=== PATIENT | female | born 1950 | race Caucasian/White ===

== ENCOUNTER → 2020-03-25 14:13 | Outpatient (CLI) | payer MEDICARE, SELFPAY ==
[2020-03-26 14:10] LABS: COVID19 -Nasal RAPID Negative (Negative)
== END ==
PROVIDERS: PCP Internal Medicine; Visit Provider Physician Assistant
DX: Z11.59 Encounter for screening for other viral diseases (principal)
CPT/HCPCS: 87635

== ENCOUNTER 2020-03-29 14:51 | Observation (INO) | payer MEDICARE, OTHER, SELFPAY ==
[2020-03-21 12:57] VITALS: BMI 38.3
[2020-03-28] VITALS (13 sets, daily range): BP systolic 86–159; BP diastolic 42–92; PULSE 71–91; RESP 15–22; TEMP 35.7–37; O2SAT 94–100; BMI 38.3
--- NOTE | 2020-03-28 06:00 | DI.RAD.S_ITS ---
PROCEDURE: XR KNEE LT 1TO2V INDICATIONS: postop TECHNIQUE: 2 view(s) of the knee acquired. COMPARISON: None. FINDINGS: Bones: Patient is status post knee joint arthroplasty. Hardware components are in expected positions. Visualized bony structures are intact. Soft tissues: Overlying postoperative changes are noted. IMPRESSION: Status post left total knee arthroplasty. Dictated by: Cammie Bran M.D. on 03/28/2020 at 16:55 Approved by: Cmamie Bran M.D. on 03/28/2020 at 16:56
[2020-03-28] MEDS: CELECOXIB 200 MG CAPSULE PO (10:41)
[2020-03-28] MEDS: ACETAMINOPHEN 325 MG TABLET 975 MG PO (10:41)
[2020-03-28] MEDS: PREGABALIN 75 MG CAPSULE PO (10:41)
--- NOTE | 2020-03-28 12:11 | SUR.PREOP ---
Patient resting quietly in bed with son at bedside. Again, apologized for delay. Patient v/u. Call light in place.
[2020-03-28] MEDS: MIDAZOLAM 2 MG/2 ML VIAL IV (15:14)
[2020-03-28] MEDS: fentaNYL 100 MCG/2 ML INJ 50 MCG IV (15:14)
[2020-03-28] MEDS: CEFAZOLIN 2 GM/100 ML FROZ.PIGGY IV ×2 (15:18→22:52)
--- NOTE | 2020-03-28 15:23 | SUR.PREOP ---
Block start time [1514] . Monitoring initiated and maintained throughout procedure. Oxygen and medications given per anesthesiologist instructions. Patient remained stable throughout procedure, no adverse reactions noted. Block end time [1517].
[2020-03-28] MEDS: TRANEXAMIC ACID 1,000 MG VIAL 1000 MG INJ (15:50)
--- NOTE | 2020-03-28 16:01 | SUR.OPER ---
Supine on padded OR bed. Pillow under head, arms secured on padded armboards <90 degree abduction. Safety belt across torso. Non-operative leg secured with tape over blanket over lower leg. Operative leg secured in DeMayo/Armando positioner. Foam padded brace at thigh of operative leg.
[2020-03-28] MEDS: LIDOCAINE 1% W/EPI 20 ML INJ (16:10)
[2020-03-28] MEDS: BUPIVACAINE 0.25% W/ EPI (PF) 40 ML, BUPIVACAINE LIPOSOME 266 MG, SODIUM CHLORIDE 0.9% ... INJ (16:10)
[2020-03-28] MEDS: BUPIVACAINE 0.25% W/ EPI (PF) 20 ML, TRANEXAMIC ACID 1,000 MG, SODIUM CHLORIDE 0.9% 10 ML INJ (16:12)
--- NOTE | 2020-03-28 17:04 | PM.OP.1 ---
Operative Date/Time/Diagnoses Date of procedure: 03/28/20 Time of procedure: 17:04 Pre-op diagnosis: Left knee osteoarthritis Post-op diagnosis: same Procedure & Clinicians Procedure: Left total knee arthroplasty Same procedure as scheduled: Yes Indications: The patient presents today for total knee arthroplasty after failure of conservative treatment. The nature of the procedure including the risks and benefits, alternatives, postoperative course and expected outcome were discussed and all questions answered. Consent was obtained. Operative site confirmed and marked. Surgeon: Juan Pablo Hendrickson Radio Installer Automobile: [employer] Anesthesia Type: Spinal, Peripheral nerve block and Local Operative Notes Closure Type: primary Specimen(s): none sent Prosthetic devices, grafts, tissues, transplants, or devices: [employer] [facility] BCS: 5 femoral component, 3 tibial component, 9 mm BCS polyethylene tray and 32 x 9 mm round patella Applied: implant(s) Estimated Blood Loss (mL): 10 Tourniquet time (min): 58 Procedure in detail: The patient was taken to the operative suite and placed under anesthesia. The patient was given prophylactic antibiotics prior to surgery. The patient was also given tranexamic acid, 1 g, just prior to surgery for postoperative hemostasis. The lateral knee was prepped and the joint injected with 20 mL of 1% Lidocaine with epinephrine. The knee was then prepped and draped in usual sterile fashion. The leg was exsanguinated with an Esmarch dressing and the tourniquet raised to 325 torr. A 15 cm anterior incision was made. Next a medial trivector arthrotomy was made. The extensor mechanism was marked to ensure accurate repair. Initial exposing dissection was carried out medially and laterally. The knee was then flexed and the intramedullary femoral guide cecy placed. The distal femoral cut was made in 6? of valgus at the +0 position. The femoral size was measured and the appropriate cutting block was then placed and the anterior, posterior and chamfer cuts made. The intramedullary tibial alignment cecy was then placed. The guide was set to remove approximately 10 mm from the less affected lateral side. The proximal tibial cut was then made with an oscillating saw. All meniscus and bony debris was then removed. Posterior femoral osteophytes removed with a curved osteotome. Flexion extension gaps were checked. No specific balancing was required other than routine exposure and removal of osteophytes. The soft tissues were then injected with a combination of 20 mL of half percent Marcaine with epinephrine and 20 mL of Exparel. The trial components were then placed. The knee was then extended and the patellar thickness was measured and a cut made removing approximately 9 mm of bone. The patella was then sized and drilled. Some excess lateral bone was excised and the patellofemoral ligament released. The knee went into full extension and flexion beyond 130?. There was good medial-lateral balance throughout motion. There was some increased laxity in flexion on the medial aspect of the joint only. This was considered acceptable and not able to really correct this point. Patellar tracking was excellent. The trial components were removed and the knee was cleansed with Pulsavac irrigation and dried. The final components were cemented with high viscosity vacuum mixed bone cement with antibiotics. The joint was filled with a dilute Betadine solution. The knee was held in extension and the patellar clamped until the cement was adequately cured. The knee was then irrigated. The extensor mechanism was closed with 5 interrupted #1 Vicryl sutures and a running Quill suture at approximately 90 degrees of flexion. The joint was then injected with a combination of 1 g of tranexamic acid and 20 mL of quarter percent Marcaine with epinephrine. The subcutaneous tissue was closed with 2 0 Vicryl. The skin was closed with miguel ángel and surgical adhesive. An Aquacel dressing and Derek wrap were then applied. The patient tolerated the procedure well and was returned to recovery room in good condition. Complications: none Post-operative Condition: stable Disposition: PACU Plan for aftercare: [facility] Protocol.
[2020-03-28] MEDS: LACTATED RINGERS 1,000 ML 42 ML IV ×2 (17:39)
[2020-03-28] MEDS: LACTATED RINGERS 1,000 ML 100 ML IV (18:51)
[2020-03-28] MEDS: ACETAMINOPHEN 325 MG TABLET 650 MG PO (20:03)
[2020-03-28] MEDS: IBUPROFEN 400 MG TABLET PO (20:03)
[2020-03-28] MEDS: OXYCODONE IR 5 MG TABLET PO (20:03)
[2020-03-28] MEDS: ASPIRIN EC 81 MG TABLET PO (20:04)
[2020-03-28] MEDS: DOCUSATE 100 MG CAPSULE PO (20:04)
[2020-03-28] MEDS: HYDROMORPHONE 2 MG TABLET PO (20:50)
[2020-03-28] MEDS: ALPRAZolam 0.5 MG TABLET 1 MG PO (22:55)
[2020-03-29] MEDS: IBUPROFEN 400 MG TABLET PO ×6 (00:37→20:35)
[2020-03-29] MEDS: HYDROMORPHONE 2 MG TABLET PO ×5 (04:18→20:35)
[2020-03-29] MEDS: hydrOXYzine pamoate 25 MG CAPSULE PO ×3 (04:18→18:41)
[2020-03-29] MEDS: LACTATED RINGERS 1,000 ML 100 ML IV (05:38)
[2020-03-29] MEDS: THYROID, PORK 30 MG TABLET PO (05:38)
[2020-03-29 05:42] LABS: Hematocrit 35.4 % (36-46); Hemoglobin 11.9 g/dL (12.0-16.0)
[2020-03-29 06:00] VITALS: BP 123/67; PULSE 68; RESP 16; TEMP 36.3; O2SAT 97
[2020-03-29] MEDS: CEFAZOLIN 2 GM/100 ML FROZ.PIGGY IV (06:46)
[2020-03-29 08:00] VITALS: BP 115/68; PULSE 69; RESP 16; TEMP 36.6; O2SAT 99
--- NOTE | 2020-03-29 08:46 | P.PN_ITS ---
Subjective Subjective Date Patient Seen: 03/29/20 Time Patient Seen: 08:46 Interval history: Patient is POD#1 s/p left TKA with Dr. Hendrickson. Some issues with pain control overnight, better control this AM with Dilaudid/Tylenol/Advil combo. Has not been OOB yet. Hutchins catheter in place due to her history of cystitis. Tolerating a diet. No complaints. Exam Vital Signs (past 8 hours): - 03/29/20 06:00 03/29/20 08:00 Temperature 97.4 F L 97.8 F Pulse Rate 68 69 Respiratory Rate 16 16 Blood Pressure 123/67 115/68 Pulse Oximetry 97 99 Oxygen Delivery Method Room Air Oxygen Flow Rate 0 Narrative Exam Narrative: 69 year old obese female resting in bed. Alert and oriented in no acute distress. PRERNA dressing in place is on and functional, CDI. Patient able to perform small leg raise. Calves are soft. Palpable pedal pulse. Objective Labs Result Diagrams: 03/29/20 05:23 Labs: Laboratory Results - last 24 hr 03/29/20 05:23 Hgb 11.9 L Hct 35.4 L Assessment & Plan Assessment & Plan narrative: Patient is POD#1 s/p L TKA. Patient has not mobilized OOB yet. Plan for her to work with PT today. Hutchins catheter in place, will d/c this today if she is able to mobilize to bedside commode with PT. Patient is obese which increased the difficulty of her operation as well as increasing the likelihood of postoperative complications such as poor wound healing and dehiscence. Anticipate slow progression postop with at least one more night inpatient due to her lack of mobility and similar experience after previous TKA. She has poor family support at home with son available as vice president of business development only for 1 night. Continue present pain control. Possible discharge to home in 1-2 days.
[2020-03-29] MEDS: DOCUSATE 100 MG CAPSULE PO ×2 (08:51→20:36)
[2020-03-29] MEDS: ACETAMINOPHEN 325 MG TABLET 650 MG PO ×3 (08:51→20:36)
[2020-03-29] MEDS: ASPIRIN EC 81 MG TABLET PO ×2 (08:52→20:36)
--- NOTE | 2020-03-29 09:25 | PT.IIE ---
Current Diagnoses Unilateral primary osteoarthritis, left knee (03/28/20) Surgery Performed Operation Date: 03/28/20 12:15 Actual Procedures p Total Knee Arthroplasty(Left) - Juan Pablo Hendrickson MD Surgical History (Last Updated 03/21/20 @ 13:21 by Gracie Tadeo, ANGEL) History of arthroplasty of right ankle (Acute 2019) History of arthroplasty of right knee (Acute 2008) History of hysterectomy (Acute) History of reconstruction of both breasts (Acute) History of removal of Port-a-Cath (Acute) Hx of bilateral mastectomy (Acute 2013) Hx of cholecystectomy (Acute) Hx of lithotripsy (Acute) Medical History (Last Updated 03/28/20 @ 10:52 by Sydney Whaley RN) Anxiety (Acute) Bilateral breast cancer (Acute 2013) DDD (degenerative disc disease), lumbar (Acute) Easy bruisability (Acute) Fibromyalgia (Acute) Hypothyroidism (Acute) Interstitial cystitis (Acute) Kidney stones (Acute) Morbid obesity (Acute) Osteoarthritis (Acute) RLS (restless legs syndrome) (Acute) Physical Therapy Inpatient Evaluation/Re-Eval M1 PT/OT-IP Prior Functional Status Start: 03/29/20 11:27 Freq: NEEDED Status: Active Protocol: Document 03/29/20 09:25 AB (Rec: 03/29/20 11:39 AB [id number]) Medical Review Prior Functional Status Medical History Reviewed Yes Communication able to make needs known Mobility and Gait pt stated that she is modified independent with all mobilities and ambulation without AD but uses SPC for long distance mobility Social History Household Members none Living Arrangements Mobile home Number of Floors (Floors) One Floor Number of Stairs To Enter/Railing? no steps; ramp to enter Home Environment High Toilet,Tub/Shower,Ramp Home Equipment Front Wheel Walker,Straight Cane,Hand Held Shower,Bed Rails,Grab Bars In Shower M2 PT-IP Current Condition Start: 03/29/20 11:27 Freq: NEEDED Status: Active Protocol: Document 03/29/20 09:25 AB (Rec: 03/29/20 11:39 AB [email or web address]) Physical Therapy Current Condition Current Condition Evaluation Date 03/29/20 Treatment Diagnosis s/p L TKA ; difficulty in walking Onset Date 03/28/20 Weight Bearing Status Weight Bearing Status Weight Bear as Tolerated Allowed Weight Bearing Amount (enter % WBAT LLE or #) (%) M3 PT-IP Subjective Start: 03/29/20 11:27 Freq: NEEDED Status: Active Protocol: Document 03/29/20 09:25 AB (Rec: 03/29/20 11:39 [email or web address]) Subjective Physical Therapy Visit Type Type Initial Evaluation Visit Start Time 09:25 Visit Stop Time 10:19 Total Visit Minutes 54 Number of FLOOR WORKER WELL SERVICE Visits 0 Physical Therapy Visit Comments Patient Comments pt is agreeable to do PT Therapy Pain Assessment Pain When Pain Assessed At Rest Pain Present Pain Present Pain Reported Location Left Knee Intensity 6 Scale Used increases to 8/10 with mobility Pain Management Techniques Apply Cold,Distraction, Modification of Treatment,Re- positioning,Timing of Activity with Medications M4 PT-IP Mobility and Gait Start: 03/29/20 11:27 Freq: NEEDED Status: Active Protocol: Document 03/29/20 09:25 AB (Rec: 03/29/20 11:39 [email or web address]) PT-Bed Mobility Assessment Supine to Sit Supine to Sit Standby Assistance Sit to Supine Sit to Supine Minimal Assistance PT-Transfer Assessment Sit to and From Stand Sit to and from Stand Maximum Assistance Equipment Transfer Assistive Device Gait Belt,Front Wheeled Walker Orthotic/Prosthetic Devices or Brace: No Comments Mobility Comments BP in supine: 135/70. completed supine to sit SBA. pt was able to sit on EOB SBA. completed sit to stand max A and cues. ambulated towards the chair but after ~ 3 ft, c/ o lightheadedness. instructed to sit on EOB and ambulated ~ 2 ft towards EOB max A and max cues for L quads activation. pt stated that she needs to lay back down due to lightheadedness. attempted to obtain BP in sitting but unable to get a reading. instructed pt to scoot up towards HOB and completed SBA. completed sit to supine min A for LLE elevation. positioned in bed. BP checked: 119/69. call light and table placed within reach. Gait Assessment Gait Gait Assistance Required: Maximum Assistance,1 Person Assist Distance (Feet) 5 Able to Maintain Weight Bearing Status Yes During Gait Assistive Devices Assistive Device Gait Belt,Front Wheeled Walker Orthotic/Prosthetic Devices or Brace: No Gait Deviations General Gait Pattern Antalgic,Decreased Stride Length,Decreased Feet Clearance,Step-to Gait Factors Limiting Gait Function Factors Limiting Gait Function Decreased Activity Tolerance, Decreased Strength,Limited Range of Motion,Pain,Poor Balance,Poor Safety Awareness PT-Balance Assessment Sitting Balance and Reactions Static Sitting Balance Ability Good Dynamic Sitting Balance Ability Good Standing Balance and Reactions Static Standing Balance Ability Fair Dynamic Standing Balance Ability Poor Device Used FWW M5 PT-IP Objective Assessments Start: 03/29/20 11:27 Freq: NEEDED Status: Active Protocol: Document 03/29/20 09:25 AB (Rec: 03/29/20 11:39 AB [id number]) Orientation Orientation/Cognition Level of Alertness Alert Orientation Name,Age,Birthday,Month,Date, Year,Day of Week,Place, Situation Language Function Ability No Deficits Noted Safety Awareness Understands Safety Issues Memory Description No Deficits Noted Gross Range of Motion Lower Extremity ROM Assessment Left Impaired Impairments L knee flexion: ~ 40 deg L knee extension: ~ 30 deg less to neutral Strength Lower Extremity Strength Assessment Left Impaired Hip 3+/5 Knee 3-/5 Ankle 4/5 Sensation Assessment Sensation Gross Sensation WNL Muscle Tone Muscle Tone WNL Yes M6 PT-IP Treatment Start: 03/29/20 11:27 Freq: NEEDED Status: Active Protocol: Document 03/29/20 09:25 AB (Rec: 03/29/20 11:39 AB [id number]) Physical Therapy Treatment Exercises Exercises Quad Sets,Heel Slides Education Education Provided Precautions,Weight Bearing Status,Post-Op Packet,Safety M7 PT-IP Assessment and Plan Start: 03/29/20 11:27 Freq: NEEDED Status: Active Protocol: Document 03/29/20 09:25 AB (Rec: 03/29/20 11:39 [email or web address]) PT Summary Assessment and Plan Potential Rehabilitation Potential Good Status of Condition at Evaluation Evolving Summary Impairments Pain,ROM,Strength,Balance, Coordination,Sensation,Tone, Cognition,Bed Mobility, Transfers,Gait,Activity Tolerance Assessment Summary pt requiring max A with mobility and unable to tolerate much activity due to c/o lightheadedness. pt lives alone and son will only be able to stay with pt 1 day. pt also stated that son will not be able to assist pt with toileting needs. pt at this time will require SNF rehab to improve strength and function independence. Goals Bed Mobility Goal Independent Transfer Goal Independent,Front Wheeled Walker Gait Goal Independent,Front Wheel Walker Gait Distance 150 Days to Meet Goals 5 Frequency of Treatment Frequency Of Treatment Twice a Day Treatment Plan Physical Therapy Treatment Plan Bed Mobility Training,Transfer Training,Gait Training, Therapeutic Exercise,Balance Retraining,Post Op Education, Discharge Planning,Hot or Cold Pack,Neuromuscular Re-ed, Coordination Retraining,Manual Therapy Recommendations To Nursing Amount of Assist Needed 1 Person Assist Discharge Recommendations PT Discharge Recommendations SNF Rehab Transportation Needs at Discharge Private Vehicle,Wheelchair/ Cabulance
[2020-03-29] MEDS: OXYCODONE IR 10 MG TABLET PO (10:29)
[2020-03-29 11:00] VITALS: BP 137/68; PULSE 66; RESP 16; TEMP 36.8; O2SAT 98
--- NOTE | 2020-03-29 12:11 | CM.DANOTE ---
Addendum entered by Anita Garza R.N. 03/29/20 14:34: Met with patient and son, Bertrand, who is at bedside. Had a discussion regarding discharge planning. Asked patient if she could pay privately at a correction facility, if needed, and stated, she can't. She understands that under observation, insurance does not cover correction. She would like home health, P.T, O.T, and bath aide. Stated that she would appreciate it, especially a bath aide. Ruben Castro worked with patient again. Patient indicated she did much better. Confirmed that patient will not qualify for inpatient, will be OBS. Patient is aware that she will be discharged tomorrow with home health. Gave Medicare Choice List to sonBertrand, and he will research agencies. Gave him care management's phone number as well. Original Note: DCP: Case received, EMR reviewed and met with patient. Son, Bertrand, was also at bedside. Introduced self and role. Was able to obtain information from patient and son regarding current living situation, discharge planning, as well as baseline activity status prior to having surgery. Patient is a 69 year old female who admitted yesterday morning to the care of the orthopedic team. PCP: Dr. Herring. Payer: confirmed: Medicare/[facility]. Patient came to the hospital for a surgical procedure. She had left total knee arthroplasty. Patient has had history of osteoarthritis. Met with patient and son in her room. Confirmed that patient is not , stated, has been for several years. Son, Bertrand, is local, but stated, he can only stay a couple of days to help out. Patient is independent at baseline. She currently has a francis secondary to cystitis. Patient resides alone in [place], and son in [place]. Melinda Wallis, PAC, stated that patient will stay another day. Will see if patient can become inpatient status, Juan Pablo in will review. Discussed home health with patient, who stated, she thinks that's a great idea. P.T. is recommending skilled rehab, but will depend upon status. Other option is if patient can pay privately. Did not yet bring up correction with patient as of yet. P: DCP to continue to follow. Will see if she can make inpatient status, otherwise, will discuss with patient if she is able to go to a correction facility and pay privately. Other option is home health. Anita Garza RN/Medical Technologist Chemistry
--- NOTE | 2020-03-29 13:09 | PT.IPTN ---
Current Diagnoses Unilateral primary osteoarthritis, left knee (03/28/20) Surgery Performed Operation Date: 03/28/20 12:15 Actual Procedures p Total Knee Arthroplasty(Left) - Juan Pablo Hendrickson MD Physical Therapy Treatment Note M2 PT-IP Current Condition Start: 03/29/20 11:27 Freq: NEEDED Status: Active Protocol: Document 03/29/20 09:25 AB (Rec: 03/29/20 11:39 AB [email or web address]) Physical Therapy Current Condition Current Condition Evaluation Date 03/29/20 Treatment Diagnosis s/p L TKA ; difficulty in walking Onset Date 03/28/20 Weight Bearing Status Weight Bearing Status Weight Bear as Tolerated Allowed Weight Bearing Amount (enter % WBAT LLE or #) (%) M3 PT-IP Subjective Start: 03/29/20 11:27 Freq: NEEDED Status: Active Protocol: Document 03/29/20 13:09 AB (Rec: 03/29/20 14:47 AB [email or web address]) Subjective Physical Therapy Visit Type Type Treatment Note Visit Start Time 13:09 Visit Stop Time 13:50 Total Visit Minutes 41 Number of BLOOD TESTER Visits 0 Physical Therapy Visit Comments Patient Comments pt is agreeable to do PT Therapy Pain Assessment Pain When Pain Assessed At Rest Pain Present Pain Present Pain Reported Location Left Knee Intensity 7 Scale Used Numeric (0 - 10) Pain Management Techniques Apply Cold,Distraction, Modification of Treatment,Re- positioning,Timing of Activity with Medications M4 PT-IP Mobility and Gait Start: 03/29/20 11:27 Freq: NEEDED Status: Active Protocol: Document 03/29/20 13:09 AB (Rec: 03/29/20 14:47 AB [email or web address]) PT-Transfer Assessment Sit to and From Stand Sit to and from Stand Minimal Assistance,1 Person Assistance,Use of Upper Extremities Equipment Transfer Assistive Device Gait Belt,Front Wheeled Walker Orthotic/Prosthetic Devices or Brace: No Transfers Transfer Destination Chair Transfer Technique ambulated using FWW Transfer Ability Level of Assist Minimal Assistance,1 Person Assistance,Use of Upper Extremities Comments Mobility Comments checked on pt and saw pt sitting on EOB. stated that she just wants to sit up. agreed to do PT. BP in sittin/89. completed sit to stand min A and cues and ambulated ~ 15 ft min A using FWW. pt without c/o lightheadedness. Pt sat on chair. BP checked again: 134/ 78. pt ambulated again using FWW 15 ft min A. completed sit to stand from chair x 3 reps CGA to min A with initial cues. reviewed and completed HEP sitting on chair. positioned pt on chair. call light and table placed within reach. Gait Assessment Gait Gait Assistance Required: Minimum Assistance Distance (Feet) 15 Able to Maintain Weight Bearing Status Yes During Gait Assistive Devices Assistive Device Gait Belt,Front Wheeled Walker Gait Deviations General Gait Pattern Antalgic,Decreased Stride Length,Decreased Feet Clearance,Step-to Gait Factors Limiting Gait Function Factors Limiting Gait Function Decreased Activity Tolerance, Decreased Strength,Limited Range of Motion,Pain,Poor Balance,Poor Safety Awareness Comments Gait Comments pls refer to mobility section for details M5 PT-IP Objective Assessments Start: 03/29/20 11:27 Freq: NEEDED Status: Active Protocol: Document 03/29/20 09:25 AB (Rec: 03/29/20 11:39 AB [email or web address]) Orientation Orientation/Cognition Level of Alertness Alert Orientation Name,Age,Birthday,Month,Date, Year,Day of Week,Place, Situation Language Function Ability No Deficits Noted Safety Awareness Understands Safety Issues Memory Description No Deficits Noted Gross Range of Motion Lower Extremity ROM Assessment Left Impaired Impairments L knee flexion: ~ 40 deg L knee extension: ~ 30 deg less to neutral Strength Lower Extremity Strength Assessment Left Impaired Hip 3+/5 Knee 3-/5 Ankle 4/5 Sensation Assessment Sensation Gross Sensation WNL Muscle Tone Muscle Tone WNL Yes M6 PT-IP Treatment Start: 03/29/20 11:27 Freq: NEEDED Status: Active Protocol: Document 03/29/20 13:09 AB (Rec: 03/29/20 14:[email or web address] Physical Therapy Treatment Exercises Exercises Ankle Pumps,Heel Slides,Seated Knee Flexion/Extension Education Education Provided Safety Other Treatments Other Treatment Performed completed LAQs M7 PT-IP Assessment and Plan Start: 03/29/20 11:27 Freq: NEEDED Status: Active Protocol: Document 03/29/20 13:09 AB (Rec: 03/29/20 14:47 [email or web address]) PT Summary Assessment and Plan Potential Rehabilitation Potential Good Summary Impairments Pain,ROM,Strength,Balance, Coordination,Bed Mobility, Transfers,Gait,Activity Tolerance Progress Towards Goals Slow Progress due to Pain Assessment Summary pt is progressing slowly and doing better with mobility this after but still requiring min A for ambulation. pt will likely progress during hospital stay. son stated that he will be able to stay ~ 2 nights with pt and can check pt during the day afterwards. recommending homehealth PT at this time. will continue to assess progress. Goals Bed Mobility Goal Independent Transfer Goal Independent,Front Wheeled Walker Gait Goal Independent,Front Wheel Walker Gait Distance 150 Days to Meet Goals 5 Frequency of Treatment Frequency Of Treatment Twice a Day Treatment Plan Physical Therapy Treatment Plan Bed Mobility Training,Transfer Training,Gait Training, Therapeutic Exercise,Balance Retraining,Post Op Education, Discharge Planning,Hot or Cold Pack,Neuromuscular Re-ed, Coordination Retraining,Manual Therapy Recommendations To Nursing Amount of Assist Needed 1 Person Assist Discharge Recommendations PT Discharge Recommendations Home with Assistance,Home Health Transportation Needs at Discharge Private Vehicle,Wheelchair/ Cabulance
[2020-03-29 16:00] VITALS: BP 139/75; PULSE 67; RESP 18; TEMP 36.9; O2SAT 96
[2020-03-29 20:00] VITALS: BP 123/63; PULSE 73; RESP 18; TEMP 36.9
[2020-03-30 00:43] VITALS: BP 122/67; PULSE 73; RESP 16; TEMP 37.4; O2SAT 98
[2020-03-30] MEDS: IBUPROFEN 400 MG TABLET PO ×4 (00:53→14:48)
[2020-03-30] MEDS: hydrOXYzine pamoate 25 MG CAPSULE PO (00:53)
[2020-03-30] MEDS: HYDROMORPHONE 2 MG TABLET PO ×3 (02:47→14:49)
--- NOTE | 2020-03-30 03:19 | PC.NURSE ---
Patient seen and assessed at 0108. Is alert and oriented. Breath sounds CTA with RA sat of 98%. HRR. Denies nausea. BT present and is passing flatus. Still with indwelling catheter; urine is clear, yellow. Is able to move herself in bed. Gait not assessed but reportedly is now getting up with walker and 1 assist. PRERNA dressing to left knee intact and functioning with small spot of sanguinous drainage over patella; is covered with giovanna wrap. Has chronic edema in bilateral LE with 1+ edema if left foot; states left foot has been more swollen for past 1 month. CMS is intact although could only lift leg couple inches off bed. Wearing bilateral calf SCD's. Denied pain during assessment but at 0247 did complain of 7/10 pain and was medicated with po Dilaudid. Did complain of itchiness which was relieved with administration of Vistaril. Fall risk score is moderate and bed alarm is activated.
[2020-03-30] MEDS: THYROID, PORK 30 MG TABLET PO (05:29)
[2020-03-30 06:00] VITALS: BP 122/66; PULSE 72; RESP 16; TEMP 36.7; O2SAT 98
[2020-03-30 08:40] VITALS: BP 125/61; PULSE 72; RESP 16; TEMP 36.3; O2SAT 99
[2020-03-30] MEDS: ASPIRIN EC 81 MG TABLET PO (08:44)
[2020-03-30] MEDS: DOCUSATE 100 MG CAPSULE PO (08:44)
[2020-03-30] MEDS: ACETAMINOPHEN 325 MG TABLET 650 MG PO ×2 (08:45→14:49)
[2020-03-30] MEDS: SODIUM CHLORIDE 0.9% FLUSH 10 ML IV (08:49)
--- NOTE | 2020-03-30 10:17 | PT.IPTN ---
Current Diagnoses Unilateral primary osteoarthritis, left knee (03/29/20) Surgery Performed Operation Date: 03/28/20 12:15 Actual Procedures p Total Knee Arthroplasty(Left) - Juan Pablo Hendrickson MD Physical Therapy Treatment Note M2 PT-IP Current Condition Start: 03/29/20 11:27 Freq: NEEDED Status: Active Protocol: Document 03/29/20 09:25 AB (Rec: 03/29/20 11:39 AB [id number]) Physical Therapy Current Condition Current Condition Evaluation Date 03/29/20 Treatment Diagnosis s/p L TKA ; difficulty in walking Onset Date 03/28/20 Weight Bearing Status Weight Bearing Status Weight Bear as Tolerated Allowed Weight Bearing Amount (enter % WBAT LLE or #) (%) M3 PT-IP Subjective Start: 03/29/20 11:27 Freq: NEEDED Status: Active Protocol: Document 03/30/20 09:49 KS (Rec: 03/30/20 11:35 KS [id number]) Subjective Physical Therapy Visit Type Type Treatment Note Visit Start Time 09:49 Visit Stop Time 10:17 Total Visit Minutes 28 Number of APPARATUS ENGINEERING TECHNOLOGIST Visits 1 Physical Therapy Visit Comments Patient Comments pt is agreeable to do PT Therapy Pain Assessment Pain When Pain Assessed During Mobility Pain Present Pain Present Pain Reported Location Left Knee Scale Used not quantified Description Aching,Tightness Pain Behaviors Guarding Pain Management Techniques Elevation,Re-positioning M4 PT-IP Mobility and Gait Start: 03/29/20 11:27 Freq: NEEDED Status: Active Protocol: Document 03/30/20 09:49 KS (Rec: 03/30/20 11:35 KS [id number]) PT-Bed Mobility Assessment Supine to Sit Supine to Sit Standby Assistance Sit to Supine Sit to Supine Standby Assistance Scooting Scooting to Edge of Bed Standby Assistance Scooting Up and Down in Bed Standby Assistance PT-Transfer Assessment Sit to and From Stand Sit to and from Stand Contact Guard Assistance,1 Person Assistance,Use of Upper Extremities Equipment Transfer Assistive Device Gait Belt,Front Wheeled Walker Orthotic/Prosthetic Devices or Brace: No Transfers Transfer Destination Bed,Chair Transfer Technique ambulated using FWW Transfer Ability Level of Assist Contact Guard Assistance,1 Person Assistance,Use of Upper Extremities Comments Mobility Comments Pt in bed upon arrival from therapy. SBA for sup<>sit w/ HOB slightly elevated and SBA for scooting to EOB. Pt sit<> stand CGA and cues for hand placement. Pt then ambulated ~ [address] w/ FWW and CGA w/ cues for quad activation and equal step length. Pt reported increased pain during ambulation upon return to room, but did not quantify. Pt vikas requested to get in chair, CGA and cues, but then stated she was more comfortable in bed. Pt sit<> stans and stand step pivot transfer to bed CGA. Instructed pt how to use gait belt for LLE assistance into bed when fatigued, which she completed succesfully SBA w/ cues. Pt able to position herself in bed SBA and left in bed w/ all needs in reach. Gait Assessment Gait Gait Assistance Required: Contact Guard Assist,1 Person Assist Distance (Feet) 100 Able to Maintain Weight Bearing Status Yes During Gait Assistive Devices Assistive Device Gait Belt,Front Wheeled Walker Gait Deviations General Gait Pattern Antalgic,Decreased Stride Length,Decreased Feet Clearance,Step-to Gait Factors Limiting Gait Function Factors Limiting Gait Function Decreased Activity Tolerance, Decreased Strength,Limited Range of Motion,Pain,Poor Balance,Poor Safety Awareness Comments Gait Comments Please refer to mobility section for details. PT-Balance Assessment Sitting Balance and Reactions Static Sitting Balance Ability Good Dynamic Sitting Balance Ability Good Standing Balance and Reactions Static Standing Balance Ability Fair Dynamic Standing Balance Ability Fair Device Used FWW M5 PT-IP Objective Assessments Start: 03/29/20 11:27 Freq: NEEDED Status: Active Protocol: Document 03/29/20 09:25 AB (Rec: 03/29/20 11:39 AB [id number]) Orientation Orientation/Cognition Level of Alertness Alert Orientation Name,Age,Birthday,Month,Date, Year,Day of Week,Place, Situation Language Function Ability No Deficits Noted Safety Awareness Understands Safety Issues Memory Description No Deficits Noted Gross Range of Motion Lower Extremity ROM Assessment Left Impaired Impairments L knee flexion: ~ 40 deg L knee extension: ~ 30 deg less to neutral Strength Lower Extremity Strength Assessment Left Impaired Hip 3+/5 Knee 3-/5 Ankle 4/5 Sensation Assessment Sensation Gross Sensation WNL Muscle Tone Muscle Tone WNL Yes M6 PT-IP Treatment Start: 03/29/20 11:27 Freq: NEEDED Status: Active Protocol: Document 03/30/20 09:49 KS (Rec: 03/30/20 11:35 KS [id number]) Physical Therapy Treatment Exercises Exercises Ankle Pumps,Heel Slides,Seated Knee Flexion/Extension Education Education Provided Post-Op Packet,Safety Other Treatments Other Treatment Performed Set up caregiver training w/ pts son @14:30 M7 PT-IP Assessment and Plan Start: 03/29/20 11:27 Freq: NEEDED Status: Active Protocol: Document 03/30/20 09:49 KS (Rec: 03/30/20 11:35 KS [id number]) PT Summary Assessment and Plan Potential Rehabilitation Potential Good Summary Impairments Pain,ROM,Strength,Balance, Coordination,Bed Mobility, Transfers,Gait,Activity Tolerance Assessment Summary Pt showed improvements w/ bed mobility and tolerance for activtity today. SBA for sup<> sit and scooting. CGA for sit< >stand and CGA for ambulation w/ FWW. Pt tolerated ~100 ft ambulation w/ FWW w/ cues for quad activation and equal step length. Pt will need caregiver training prior to d/ c. Goals Bed Mobility Goal Independent Transfer Goal Independent,Front Wheeled Walker Gait Goal Independent,Front Wheel Walker Gait Distance 150 Days to Meet Goals 5 Frequency of Treatment Frequency Of Treatment Twice a Day Treatment Plan Physical Therapy Treatment Plan Bed Mobility Training,Transfer Training,Gait Training, Therapeutic Exercise,Balance Retraining,Post Op Education, Discharge Planning,Hot or Cold Pack,Neuromuscular Re-ed, Coordination Retraining,Manual Therapy Recommendations To Nursing Amount of Assist Needed 1 Person Assist Discharge Recommendations PT Discharge Recommendations Home with Assistance,Home Health Transportation Needs at Discharge Private Vehicle,Wheelchair/ Cabulance
[2020-03-30 11:40] VITALS: BP 146/80; PULSE 79; RESP 16; TEMP 36.8; O2SAT 94
--- NOTE | 2020-03-30 12:55 | PM.DS.1 ---
History of Present Illness History of Present Illness Date Patient Seen: 03/30/20 Time Patient Seen: 07:27 Chief complaint: Left Total Knee Arthroplasty *OPB* Narrative: Patient's pain is mild. Denies fever chills. No nausea vomiting. Patient has been able do move about the room with assistance and a walker. Discharge Providers Provider Date of admission: 03/29/20 14:51 Discharge Date: 03/30/20 Primary care physician: Asuncion Herring MD Consults: 03/28/20 18:30 Consult to Discharge Planning Routine Comment: Consult to Physical Therapy Evaluate & Treat Comment: Physician Instructions: postop TKA protocol Consult to Respiratory Therapy Evaluate & Treat Comment: Physician Instructions: Evaluate and treat Discharge provider: Salomón Sofia PA-C Summary Hospital Course Discharge Diagnosis: Left knee osteoarthritis Obesity with BMI of 38.4 Hospital Course: Procedure: Left total knee arthroplasty Same procedure as scheduled: Yes Indications: The patient presents today for total knee arthroplasty after failure of conservative treatment. The nature of the procedure including the risks and benefits, alternatives, postoperative course and expected outcome were discussed and all questions answered. Consent was obtained. Operative site confirmed and marked. Surgeon: Juan Pablo Hendrickson Tail End Rider: Salomón Sofia Anesthesia Type: Spinal, Peripheral nerve block and Local Operative Notes Closure Type: primary Specimen(s): none sent Prosthetic devices, grafts, tissues, transplants, or devices: Sauceda and Nephew Anish BCS: 5 femoral component, 3 tibial component, 9 mm BCS polyethylene tray and 32 x 9 mm round patella Applied: implant(s) Estimated Blood Loss (mL): 10 Tourniquet time (min): 58 Status at Discharge Cognitive/behavioral status at discharge: at baseline, oriented Functional status at discharge: uses cane/walker Time Spent with Patient Time spent: Less than 30 minutes Exam Vital Signs (past 8 hours): - 03/30/20 06:00 03/30/20 08:40 Temperature 98.0 F 97.4 F L Pulse Rate 72 72 Respiratory Rate 16 16 Blood Pressure 122/66 125/61 Pulse Oximetry 98 99 Oxygen Delivery Method Room Air Oxygen Flow Rate 0 Narrative Exam Narrative: 69-year-old female resting comfortably in bed in no apparent distress. Dressing is clean, dry and intact. Motor function intact distal left lower extremity. Sensation grossly intact to light touch distal left lower extremity. Both legs are warm and dry. Objective Labs Result Diagrams: 03/29/20 05:23 Discharge Assessment & Plan Assessment and Plan Assessment: Patient progressing as expected status post left total knee arthroplasty. Patient lives alone in her son will be available at night time. She stable to be discharged home with home health services. Discharge Plan Discharge Plan Patient Disposition: Home Health Service Discharge orders & Medications Prescriptions: New acetaminophen 325 mg Tablet 650 mg PO TID Qty: 60 RF: 1 aspirin 81 mg Tablet,Delayed Release (Dr/Ec) 81 mg PO BID Qty: 60 RF: 0 oxycodone 5 mg Tablet 5 mg PO Q3HR PRN (Reason: Pain, Moderate (4-6)) Qty: 60 RF: 0 Continued alprazolam 1 mg Tablet 1 mg PO BEDTIME PRN (Reason: Sleep) RF: 0 zolpidem 5 mg Tablet 5 mg PO BEDTIME PRN (Reason: Sleep) RF: 0 celecoxib [Celebrex] 100 mg Capsule 100 mg PO BID RF: 0 thyroid (pork) [GUEST SERVICES COORDINATOR Thyroid] 30 mg Tablet 30 mg PO DAILY RF: 0 Discontinued oxycodone 5 mg Tablet 5 mg PO BID PRN (Reason: Pain) RF: 0 Follow up/Referrals: Juan Pablo Hendrickson MD [Physician] - (14 days) Asuncion Herring MD [Primary Care Provider] - Diet/Activity/Treatments Activity: WBAT Cold/Heat Therapy: ice as needed Skin/Wound/Dressing Care Dressing: PRERNA dressing. Follow information on printed information given to you. If drain alarms, becomes saturated, or you have any problems with the drain you can't resolve with the information given - please call the office. Visit Report/Discharge Packet Instructions: How to Choose and Use a Walker, DI for Knee Replacement, DI for Constipation, How to Prevent Falls Stand Alone Forms: Surgery Discharge Visit Report Forms: Patient Portal/API, Stroke Signs & Symptoms Discharge Data Primary Care Provider: Asuncion Herring Attending Provider: Juan Pablo Hendrickson Admit Date/Time: 03/29/20 14:51
--- NOTE | 2020-03-30 13:00 | PM.DS.1 ---
History of Present Illness History of Present Illness Chief complaint: Left Total Knee Arthroplasty *OPB* Narrative: Patient's pain is mild. Denies fever chills. No nausea vomiting. Patient has been able do move about the room with assistance and a walker. Discharge Providers Provider Date of admission: 03/29/20 14:51 Discharge Date: 03/30/20 Primary care physician: Asuncion Herring MD Consults: 03/28/20 18:30 Consult to Discharge Planning Routine Comment: Consult to Physical Therapy Evaluate & Treat Comment: Physician Instructions: postop TKA protocol Consult to Respiratory Therapy Evaluate & Treat Comment: Physician Instructions: Evaluate and treat Discharge provider: Salomón Sofia PA-C Exam Vital Signs (past 8 hours): - 03/30/20 06:00 03/30/20 08:40 Temperature 98.0 F 97.4 F L Pulse Rate 72 72 Respiratory Rate 16 16 Blood Pressure 122/66 125/61 Pulse Oximetry 98 99 Oxygen Delivery Method Room Air Oxygen Flow Rate 0 Objective Labs Result Diagrams: 03/29/20 05:23 Discharge Assessment & Plan Assessment and Plan Assessment: Patient progressing as expected status post left total knee arthroplasty. Patient lives alone and her son will be available at night time. She stable to be discharged home with home health services. Physical therapy states she has 1 person assist and recommence home health assistance as well. Discharge Plan Discharge Plan Patient Disposition: Home Health Service Discharge orders & Medications Prescriptions: New acetaminophen 325 mg Tablet 650 mg PO TID Qty: 60 RF: 1 aspirin 81 mg Tablet,Delayed Release (Dr/Ec) 81 mg PO BID Qty: 60 RF: 0 oxycodone 5 mg Tablet 5 mg PO Q3HR PRN (Reason: Pain, Moderate (4-6)) Qty: 60 RF: 0 Continued alprazolam 1 mg Tablet 1 mg PO BEDTIME PRN (Reason: Sleep) RF: 0 zolpidem 5 mg Tablet 5 mg PO BEDTIME PRN (Reason: Sleep) RF: 0 celecoxib [Celebrex] 100 mg Capsule 100 mg PO BID RF: 0 thyroid (pork) [OUTREACH PROFESSIONAL Thyroid] 30 mg Tablet 30 mg PO DAILY RF: 0 Discontinued oxycodone 5 mg Tablet 5 mg PO BID PRN (Reason: Pain) RF: 0 Follow up/Referrals: Juan Pablo Hendrickson MD [Physician] - (14 days) Asuncion Herring MD [Primary Care Provider] - Diet/Activity/Treatments Activity: WBAT Cold/Heat Therapy: ice as needed Skin/Wound/Dressing Care Dressing: PRERNA dressing. Follow information on printed information given to you. If drain alarms, becomes saturated, or you have any problems with the drain you can't resolve with the information given - please call the office. Visit Report/Discharge Packet Instructions: How to Choose and Use a Walker, DI for Knee Replacement, DI for Constipation, How to Prevent Falls Stand Alone Forms: Surgery Discharge Visit Report Forms: Patient Portal/API, Stroke Signs & Symptoms Discharge Data Primary Care Provider: Asuncion Herring Attending Provider: Juan Pablo Hendrickson Admit Date/Time: 03/29/20 14:51
--- NOTE | 2020-03-30 13:28 | CM.DPC ---
Addendum entered by Sissy Hong LPN 03/30/20 14:14: Met now with pt. now and introduced self and role. Explained more about the HH process and the acceptance by [facility]. Pt says she thinks this will be very helpful but also notes that as soon as she can she hopes to get back to her OUTPT PT. Pt confirms in more detail her living situation. [place] and says has about 11 friends who reside there. We are all supportive of each other. Her son and will only stay a couple days but do live in [facility] and they will be in and out checking on me. She reports she has been prepping her home for this surgery. There is even a ramp to get into my home. As re constipation: pt says my son is worried about this. Not me. She reports she is passing gas and now that she has been able to get up and move more I feel so much better and it will be much easier to move by bowels in the privacy of my home. P: remains home today. [facility]. DIL to transport. ANGEL Shannon is updated. Original Note: DCP: continued: Case received. DC to home setting and HH noted. EMR reviewed. See that HH has been discussed and Face/Face with sig by Dr. Owens is in place. Son was reviewing vendor choices for HH. Went to room to check in with pt. She was in having a shower. Called son Philip and spoke with him re HH agency choice. Decision: [facility] Referral: to [facility]. Accepts. He will call pt later today. Clinical documentation is being printed now for fax to [facility]. Will be meeting with pt to finalize. Philip says that his will be here for caregiver training session with PT at 1430 today. He also says his mother is constipated and we don't expect she will go home like that. Will alert ANGEL Shannno, caring for pt today.
--- NOTE | 2020-03-30 15:10 | PT.IPTN ---
Current Diagnoses Unilateral primary osteoarthritis, left knee (03/29/20) Surgery Performed Operation Date: 03/28/20 12:15 Actual Procedures p Total Knee Arthroplasty(Left) - Juan Pablo Hendrickson MD Physical Therapy Treatment Note M2 PT-IP Current Condition Start: 03/29/20 11:27 Freq: NEEDED Status: Active Protocol: Document 03/29/20 09:25 AB (Rec: 03/29/20 11:39 AB [id number]) Physical Therapy Current Condition Current Condition Evaluation Date 03/29/20 Treatment Diagnosis s/p L TKA ; difficulty in walking Onset Date 03/28/20 Weight Bearing Status Weight Bearing Status Weight Bear as Tolerated Allowed Weight Bearing Amount (enter % WBAT LLE or #) (%) M3 PT-IP Subjective Start: 03/29/20 11:27 Freq: NEEDED Status: Active Protocol: Document 03/30/20 14:37 KS (Rec: 03/30/20 15:43 KS [id number]) Subjective Physical Therapy Visit Type Type Treatment Note Visit Start Time 14:37 Visit Stop Time 15:10 Total Visit Minutes 33 Number of SPINNING SUPERVISOR Visits 2 Physical Therapy Visit Comments Patient Comments pt is agreeable to do PT. Pts DIL present for caregiver training. Therapy Pain Assessment Pain When Pain Assessed During Mobility Pain Present Pain Present Pain Reported Location Left Knee Intensity 5 Scale Used Numeric (0 - 10) Description Aching,Tightness Pain Behaviors Guarding Pain Management Techniques Elevation,Re-positioning M4 PT-IP Mobility and Gait Start: 03/29/20 11:27 Freq: NEEDED Status: Active Protocol: Document 03/30/20 14:37 KS (Rec: 03/30/20 15:43 KS [id number]) PT-Bed Mobility Assessment Supine to Sit Supine to Sit Standby Assistance Sit to Supine Sit to Supine Standby Assistance Scooting Scooting to Edge of Bed Standby Assistance Scooting Up and Down in Bed Standby Assistance PT-Transfer Assessment Sit to and From Stand Sit to and from Stand Contact Guard Assistance,1 Person Assistance,Use of Upper Extremities Equipment Transfer Assistive Device Gait Belt,Front Wheeled Walker Orthotic/Prosthetic Devices or Brace: No Transfers Transfer Destination Bed,Toilet,Wheelchair Transfer Technique ambulated using FWW Transfer Ability Level of Assist Contact Guard Assistance,1 Person Assistance,Use of Upper Extremities Comments Mobility Comments Pt in bed upon arrival from therapy w/ DIL in room for caregiver training. Pt SBA for sup<>sit w/ HOB flat and scooting to EOB. Instructed pts DIL in gaitbelt application and how to provide appropriate assist for sit<> stand w/ FWW. Pts DIL provided CGA to pt sit<>stand. Pt then ambulated to toilet SBA w/ use of hand rail for stand<> sit. Pt then ambulated ~30 ft w/ DIL providing SBA w/ cues for quad activation, equal step length, and upright posture. Pt returned to bed and used gait belt to self assist LLE into and out of bed . Pt performed bed mobility SBA prior to transferring to w /c SBA to CGA. Pt and DIL state they have no further questions for PT. Gait Assessment Gait Gait Assistance Required: Standby Assistance,Contact Guard Assist,1 Person Assist Distance (Feet) 40 Able to Maintain Weight Bearing Status Yes During Gait Assistive Devices Assistive Device Gait Belt,Front Wheeled Walker Gait Deviations General Gait Pattern Antalgic,Decreased Stride Length,Decreased Feet Clearance,Step-to Gait Factors Limiting Gait Function Factors Limiting Gait Function Decreased Activity Tolerance, Decreased Strength,Limited Range of Motion,Pain,Poor Balance,Poor Safety Awareness Comments Gait Comments Please refer to mobility section for details. Stair Climbing Assessment Comments Stair Climbing Comments no stairs at home PT-Balance Assessment Sitting Balance and Reactions Static Sitting Balance Ability Good Dynamic Sitting Balance Ability Good Standing Balance and Reactions Static Standing Balance Ability Fair Dynamic Standing Balance Ability Fair Device Used FWW M5 PT-IP Objective Assessments Start: 03/29/20 11:27 Freq: NEEDED Status: Active Protocol: Document 03/29/20 09:25 AB (Rec: 03/29/20 11:39 [id number]) Orientation Orientation/Cognition Level of Alertness Alert Orientation Name,Age,Birthday,Month,Date, Year,Day of Week,Place, Situation Language Function Ability No Deficits Noted Safety Awareness Understands Safety Issues Memory Description No Deficits Noted Gross Range of Motion Lower Extremity ROM Assessment Left Impaired Impairments L knee flexion: ~ 40 deg L knee extension: ~ 30 deg less to neutral Strength Lower Extremity Strength Assessment Left Impaired Hip 3+/5 Knee 3-/5 Ankle 4/5 Sensation Assessment Sensation Gross Sensation WNL Muscle Tone Muscle Tone WNL Yes M6 PT-IP Treatment Start: 03/29/20 11:27 Freq: NEEDED Status: Active Protocol: Document 03/30/20 14:37 KS (Rec: 03/30/20 15:43 KS [id number]) Physical Therapy Treatment Education Education Provided Post-Op Packet,Safety Other Treatments Other Treatment Performed Completed caregiver training w / pts DIL. M7 PT-IP Assessment and Plan Start: 03/29/20 11:27 Freq: NEEDED Status: Active Protocol: Document 03/30/20 14:37 KS (Rec: 03/30/20 15:43 KS [id number]) PT Summary Assessment and Plan Potential Rehabilitation Potential Good Summary Impairments Pain,ROM,Strength,Balance, Coordination,Bed Mobility, Transfers,Gait,Activity Tolerance Assessment Summary Pt SBA for bed mobility. SBA to CGA for transfers and ambulation w/ FWW. Completed caregiver training w/ pts DIL who was able to provide appropriate assist and cues during transfers and ambulation w/ FWW. Pt and DIL state they feel safe to return home and have necessary equipment. Pts DIL confirms herself and pts son will be able tp assist pt when needed. Pt will benefit from HHPT to improve strength and functional mobility. Goals Bed Mobility Goal Independent Transfer Goal Independent,Front Wheeled Walker Gait Goal Independent,Front Wheel Walker Gait Distance 150 Days to Meet Goals 5 Frequency of Treatment Frequency Of Treatment Twice a Day Treatment Plan Physical Therapy Treatment Plan Bed Mobility Training,Transfer Training,Gait Training, Therapeutic Exercise,Balance Retraining,Post Op Education, Discharge Planning,Hot or Cold Pack,Neuromuscular Re-ed, Coordination Retraining,Manual Therapy Recommendations To Nursing Amount of Assist Needed 1 Person Assist Discharge Recommendations PT Discharge Recommendations Home with Assistance,Home Health,Outpatient PT Transportation Needs at Discharge Private Vehicle,Wheelchair/ Cabulance
--- NOTE | 2020-03-30 16:48 | PC.NURSE ---
Discharge: Feels ready to d/c home. Seen by ALFONSO Sofia and given d/c instructions. Seen by PT and passed their eval. Hutchins out and has voided. Diet tolerated w/out problems. Has not had a bm and reviewed information for constipation. ALFONSO Sofia called regarding pain med for home use. She has been taking dilaudid at hospital. ALFONSO Sofia did write for a limited number of tabs to be taken at home. Rx given to pt. Dtr here for plant care worker training. Same completed. Reviewed d/c packet. Has both rx's for home use per ALFONSO. PRERNA drain information reviewed. Reviewed d/c packet. Questions answered. Pt d/c home via auto w/dtr.
== END 2020-03-30 15:15 | disposition home health service (06) ==
LOC: OR 16:08 → AC 16:08
PROVIDERS: Admitting Provider Orthopaedic Surgery; PCP Family Medicine; Referring Provider Family Medicine; Visit Provider Orthopaedic Surgery
PROC: 0SRD0JZ Replacement of Left Knee Joint with Synthetic Substitute, Open Approach (ICD-10-PCS; CPT 27447; principal; 2020-03-28 12:15)
DX: M17.12 Unilateral primary osteoarthritis, left knee (principal); E66.01 Morbid (severe) obesity due to excess calories; Z68.38 Body mass index [BMI] 38.0-38.9, adult; E03.9 Hypothyroidism, unspecified; I10 Essential (primary) hypertension
CPT/HCPCS: 27447; 36415; 64450; 73560; 85014; 85018; 97110; 97116; 97162; 97530; C1776; G0378; C9290; J0690; J2250; J2704; J3010